=== PATIENT | female | born 1990 | race Caucasian/White ===

== ENCOUNTER 2017-06-15 00:58 | Emergency (ER) | payer OTHER ==
[~2017-06-15] VITALS: Ht 154.9 cm; Wt 51.0 kg
[2017-06-15] MEDS ORDERED: IBUPROFEN 600MG TABLET PO ONE (03:00)
[2017-06-15 04:28] VITALS: BP 110/63
== END 2017-06-15 05:55 | disposition home or self-care (01) ==
LOC: ER 04:14
DX: S93.401A Sprain of unspecified ligament of right ankle, initial encounter (principal); S93.601A Unspecified sprain of right foot, initial encounter; W18.39XA Other fall on same level, initial encounter; Y93.55 Activity, bike riding; Y92.89 Other specified places as the place of occurrence of the external cause
CPT/HCPCS: 29515; 73610; 73630; 99284